=== PATIENT | female | born 2000 | race Caucasian/White ===

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

== ENCOUNTER 2019-12-10 10:19 | Outpatient (CLI) | payer MEDICAID ==
--- NOTE | 2019-12-10 15:36 | Ultrasound Report ---
Reason: TEST POSITIVE Procedure Date: 12/10/2019 Accession Number: [id number] / [id number] Procedure: US - OB First Trimester CPT Code: Addended Final Report FULL RESULT: EXAM: FIRST TRIMESTER OBSTETRIC ULTRASOUND (Less than 11 weeks) EXAM DATE: 12/10/2019 10:42 AM. CLINICAL HISTORY: TEST POSITIVE. LMP: 10/20/2019. COMPARISONS: None. TECHNIQUE: Transabdominal and transvaginal ultrasound examination with static image documentation. CLINICAL DATES: EGA 7 weeks 2 days with NOBLE 07/26/2020 based on LMP. ASSESSMENT: Gestational Sac: Single intrauterine. Mean gestational sac diameter: 1.8 mm = 6 weeks 5 days. Embryo: CRL (crown-rump length) 5.3 mm = 6 weeks 2 days. Cardiac activity: No cardiac activity is detected. Yolk sac: 4.9 mm. Amniotic fluid: Not accurately assessed at this gestational age. Early placenta: Not visible at this gestational age. Other: No perigestational fluid collection demonstrated. MATERNAL STRUCTURES: Uterus: Retroverted. Unremarkable. Cervix: Closed. Right Ovary/Adnexa: The ovary measures 3.3 x 2.5 x 2.1 cm, volume 9 cc. A 1.4 cm cyst is within physiologic limits. Left Ovary/Adnexa: The ovary measures 3.0 x 1.8 x 1.5 cm, volume 4.2 cc. Unremarkable. Free Fluid: None. Other: None. IMPRESSION: Intrauterine of uncertain viability. Intrauterine embryo with crown-rump length corresponding to a gestational age of 6 weeks 2 days. No cardiac activity seen at this time, which can be normal in early . Recommend follow-up ultrasound in 7-10 days to assess viabilityHayde MUIR The call report notification system was initiated by Dr. Lemuel Aguero at 03:31 PM on 12/10/2019. ADDENDUM: 12/10/19 15:48 The above call report findings were discussed with EDUAR Reed on behalf ofJose Davis by Dr. Lemuel Aguero at 03:48 PM on 12/10/2019.
== END 2019-12-10 10:20 | disposition home or self-care (01) ==
LOC: DI 10:19
PROVIDERS: ATTEND Obstetrics & Gynecology
DX: Z32.01 Encounter for pregnancy test, result positive (principal)
CPT/HCPCS: 76801

== ENCOUNTER 2019-12-11 08:00 | Outpatient (CLI) | payer MEDICAID | END 2019-12-11 08:01 | disposition home or self-care (01) | LOC: LAB.WCP 08:00 → MERGE 08:35 | PROVIDERS: ATTEND Obstetrics & Gynecology | DX: O03.9 Complete or unspecified spontaneous abortion without complication (principal); Z32.01 Encounter for pregnancy test, result positive | CPT/HCPCS: 36415; 84702; 86900; 86901 ==

== ENCOUNTER 2019-12-13 08:00 | Outpatient (CLI) | payer MEDICAID | END 2019-12-13 23:59 | disposition home or self-care (01) | LOC: LAB.WCP 08:00 | PROVIDERS: ATTEND Nurse Practitioner Obstetrics & Gynecology | DX: O03.9 Complete or unspecified spontaneous abortion without complication (principal); Z32.01 Encounter for pregnancy test, result positive | CPT/HCPCS: 36415; 84702 ==

== ENCOUNTER 2019-12-17 06:54 | Outpatient (CLI) | payer MEDICAID ==
--- NOTE | 2019-12-17 09:03 | Ultrasound Report ---
Reason: TEST POSITIVE Procedure Date: 12/17/2019 Accession Number: [id number] / [id number] Procedure: US - OB First Trimester CPT Code: Final Report FULL RESULT: EXAM: FIRST TRIMESTER OBSTETRIC ULTRASOUND (Less than 11 weeks) EXAM DATE: 12/17/2019 07:48 AM. CLINICAL HISTORY: TEST POSITIVE. LMP: 10/20/2019. COMPARISONS: OB FIRST TRIMESTER 12/10/2019 10:42 AM. TECHNIQUE: Transabdominal and transvaginal ultrasound examination with static image documentation. CLINICAL DATES: EGA 8 weeks 2 days with NOBLE 07/26/2020 based on LMP. ASSESSMENT: Gestational Sac: Single intrauterine. Mean gestational sac diameter: 22.2 mm = 7 weeks 1 day. Embryo: CRL (crown-rump length) 4.1 mm = 6 weeks 1 day. Cardiac activity: 0 beats per minute. Yolk sac: 1.8 mm. Amniotic fluid: Not accurately assessed at this gestational age. Early placenta: Not visible at this gestational age. Other: No perigestational fluid collection demonstrated. MATERNAL STRUCTURES: Uterus: Retroverted. Unremarkable. Cervix: Closed. Right Ovary/Adnexa: The ovary measures 3.9 x 2.6 x 1.6 cm, volume 8.5 cc. Unremarkable. Left Ovary/Adnexa: The ovary measures 2.6 x 1.6 x 1.7 cm, volume 3.7 cc. Unremarkable. Free Fluid: None. Other: None. IMPRESSION: 1. Single intrauterine gestation at EGA 6 weeks 1 day with NOBLE 9 1320 based on crown-rump length, which is discordant with clinical dates. 2. No interval growth in the 7 days since the prior ultrasound of 12/10/2019 and absence of cardiac activity consistent with failed .. RADIA
== END 2019-12-17 06:55 | disposition home or self-care (01) ==
LOC: DI 06:54
PROVIDERS: ATTEND Obstetrics & Gynecology
DX: Z32.01 Encounter for pregnancy test, result positive (principal)
CPT/HCPCS: 76801; 76817

== ENCOUNTER 2020-01-04 16:09 | Emergency (ER) | payer MEDICAID ==
[2020-01-04] MEDS ORDERED: PROPOFOL 200 MG/20 ML VIAL IVP ONE (16:10)
[2020-01-04] MEDS ORDERED: DEXAMETHASONE 4 MG/ML VIAL IVP ONE (16:10)
[2020-01-04] MEDS ORDERED: MIDAZOLAM 2 MG/2 ML VIAL IVP ONE (16:10)
[2020-01-04] MEDS ORDERED: ONDANSETRON 4 MG/2 ML VIAL IVP ONE (16:10)
[2020-01-04] MEDS ORDERED: LIDOCAINE-MPF 2% 5 ML VIAL IM ONE (16:10)
[2020-01-04] MEDS ORDERED: ACETAMINOPHEN 1,000 MG/100 ML 100 ML IV ONE (16:10)
[2020-01-04] MEDS ORDERED: KETOROLAC 30 MG/ML VIAL IVP ONE (16:10)
[2020-01-04] MEDS ORDERED: fentaNYL 100 MCG/2 ML VIAL IVP ONE (16:10)
[2020-01-04] MEDS ORDERED: SODIUM CHLORIDE 0.9% 1,000 ML IV ONE (16:33)
--- NOTE | 2020-01-04 16:35 | ED Physician Documentation ---
PD HPI ABD PAIN - Stated complaint Stated Complaint: Miscarriage/Bleeding - Chief complaint Chief Complaint: Abd Pain - History obtained from History obtained from: Patient (This is a 19-year-old woman who had a known miscarriage and was given misoprostol 5 days ago and 4 days ago respectively. She has had heavy bleeding today, Triple a normal menses. She thinks. She had a couple episodes of syncope. No injury. She was helped down to the ground.) Review of Systems Ten Systems: 10 systems reviewed and negative Constitutional: denies: Fever, Chills Cardiac: reports: Reviewed and negative Respiratory: reports: Reviewed and negative PD PAST MEDICAL HISTORY - Past Medical History Past Medical History: No - Allergies Allergies/Adverse Reactions: Allergies Allergy/AdvReac Type Severity Reaction Status Date / Time No Known Drug Allergies Allergy Verified 01/04/20 16:15 - Social History Does the pt have substance abuse?: No PD ED PE NORMAL - Vitals Vital signs reviewed: Yes (Normal vitals, hemodynamically stable) - General General: Alert and oriented X 3, No acute distress - HEENT HEENT: PERRL, EOMI - Neck Neck: Supple, no meningeal sign, No bony TTP - Cardiac Cardiac: RRR, No murmur - Respiratory Respiratory: No respiratory distress, Clear bilaterally - Abdomen Abdomen: Normal bowel sounds, Soft, Non tender - Back Back: No CVA TTP, No spinal TTP - Derm Derm: Normal color, Warm and dry - Extremities Extremities: No tenderness to palpate, No edema, No calf tenderness / cord - Neuro Neuro: Alert and oriented X 3, Normal speech Results - Vitals Vitals: Vital Signs - 24 hr 01/04/20 16:16 Temperature 36.9 C Heart Rate 89 Respiratory 18 Rate Blood Pressure 129/86 H O2 Saturation 100 Oxygen O2 Source Room air PD MEDICAL DECISION MAKING - ED course ED course: OB, Dr. Padilla was here on arrival. She examined her internally and thought she got POC from the os but she continued to bleed and she reviewed the ultrasound and there were products of conception remaining so was taking her to the OR for D&C. Departure - Departure Disposition: ED Transfer to [facility] Clinical Impression: Incomplete Condition: Stable
--- NOTE | 2020-01-04 17:21 | CONSULTATION NOTE ---
History of Present Illness - History of Present Illness HPI Comment/Other: Consulting: ER HPI: Took mifi on Mon then miso on (3d ago). 4h post miso started bleeding and cramping, passed some clots, thought she was done. Bleeding was like a period following that. Then today VB increased along with cramping. Was on the toilet and had free-flow of blood as well as clot. On the toilet tried to get up and blacked out 3x, was assisted down by her mother, didn't hit her head. VB is ongoing. PMH: headaches PSH: neg NKDA OB: Meds: PNV SH: no t/e/d ROS: feeling ok, no fevers, no URI sx. O: AVSS Alert, smiling, has color, NAD Cor RRR no murmurs Lungs CTA bilat Abd soft, nt/nd EFG normal Cervix with ?POC? at the opening. Removed with a ring forcep and sent to pathology US with retained POC Soaked 1 normal sized pad in 30min. Labs pending Meds/Allgy - Allergies Allergies/Adverse Reactions: Allergies Allergy/AdvReac Type Severity Reaction Status Date / Time No Known Drug Allergies Allergy Verified 01/04/20 16:15 Exam - Vital Signs Vital Signs: Vital Signs x48h Temp Pulse Resp BP Pulse Ox 01/04/20 16:16 98.4 F 89 18 129/86 H 100 Conclusion/Plan - Diagnosis Diagnosis: Incomplete miscarriage - Plan Plan: Incomplete SAB, had a MAB with CRL of 6w, took mifi and miso 3d ago, today has increased vag bleeding and POC seen on US. Pt prefers to go do D&C rather than to do another round of medication that may not be successful. Expect mgmt offered but not recommended. To OR now. Reviewed procedure and recovery. Risks discussed including bleeding, infection, trauma to local organs, anesthesia complications, and failure to remove all products of conception. All questions were answered and consent was signed. Anticipate discharge from PACU. Labs pending. Rh+.
[2020-01-04 17:38] LABS: BASOPHILS % (AUTO) 0.2 %; EOSINOPHILS # (AUTO) 0.1 10^3/uL (0.0-0.7); EOSINOPHILS % (AUTO) 0.6 %; HGB - HEMOGLOBIN 11.6 g/dL (12.0-16.0); LYMPHOCYTES # (AUTO) 1.4 10^3/uL (1.5-3.5); LYMPHOCYTES % (AUTO) 16.7 %; MEAN CORPUSCULAR HEMOGLOBIN 29.1 pg (27.0-31.0); MEAN CORPUSCULAR HGB CONC 32.5 g/dL (32.0-36.0); MEAN CORPUSCULAR VOLUME 89.7 fL (81.0-99.0); MEAN PLATELET VOLUME 9.9 fL (7.9-10.8); MONOCYTES # (AUTO) 0.5 10^3/uL (0.0-1.0); MONOCYTES % (AUTO) 5.7 %; NEUTROPHILS # (AUTO) 6.6 10^3/uL (1.5-6.6); NEUTROPHILS % (AUTO) 76.3 %; PLT - PLATELET COUNT 241 10^3/uL (130-450); RED BLOOD COUNT 3.98 10^6/uL (4.20-5.40); RED CELL DISTRIBUTION WIDTH 13.7 % (12.0-15.0); WHITE BLOOD COUNT 8.6 x10^3/uL (4.8-10.8)
[2020-01-04 17:41] LABS: ALBUMIN 3.9 g/dL (3.2-5.5); ALBUMIN/GLOBULIN RATIO 1.3 (1.0-2.2); BILIRUBIN,TOTAL 0.6 mg/dL (0.2-1.0); CALCIUM 8.7 mg/dL (8.5-10.3); CREATININE 0.7 mg/dL (0.4-1.0)
--- NOTE | 2020-01-04 17:56 | Ultrasound Report ---
Reason: Pelvic pain/bleeding post miscarriage Procedure Date: 01/04/2020 Accession Number: [id number] / [id number] Procedure: US - Pelvic w/Transvag+Doppler Comp CPT Code: Final Report FULL RESULT: EXAM: PELVIC ULTRASOUND WITH DOPPLERS CLINICAL HISTORY: Pelvic pain/bleeding post miscarriage. COMPARISON: None. TECHNIQUE: Realtime transabdominal imaging performed to identify the uterus and adnexa and as an overview of other pelvic structures, with static image documentation. Color flow imaging and Doppler spectral analysis was performed to evaluate blood flow to the ovaries given pelvic pain and clinical concern for ovarian torsion. FINDINGS: Uterus: 10.0 x 4.4 x 5.3 cm, volume 124.4 cc. Anteverted position. Normal overall size and echotexture. Masses: None. Endometrium: 14 mm. Mildly thickened with cystic structure within the endometrium measuring 15 x 6 mm. Cervix: Unremarkable. Right Ovary: 2.6 x 3.3 x 1.6 cm, volume 7.0 cc. Normal echotexture. Arterial and venous blood flow are present. PSV 15.8 cm/sec. RI 0.7. Adnexa are unremarkable. Left Ovary: 2.5 x 1.4 x 1.2 cm, volume 2.1 cc. Normal echotexture. Arterial and venous blood flow are present. PSV 13.3 cm/sec. RI 0.6. Adnexa are unremarkable. Free Fluid: None. Other: None. IMPRESSION: 1. The endometrium is mildly thickened with a cystic structure in the endometrium measuring 15 x 6 mm. 2. Arterial and venous blood flow are present to the ovaries bilaterally. RADIA
--- NOTE | 2020-01-04 18:14 | ANESTHESIA ---
Pre-Anesthesia VS, & Labs - Diagnosis Diagnosis Incomplete miscarriage - Procedure suction D and C Vital Signs: Temp Pulse Resp BP Pulse Ox 36.9 C 88 18 120/74 100 01/04/20 16:16 01/04/20 17:38 01/04/20 17:38 01/04/20 17:38 01/04/20 17:38 Height 5 ft 5 in Weight (kg) 76.204 kg Body Mass Index 27.9 - NPO Other (noon, soup) - Is Patient ?: No - Lab Results Current Lab Results: Laboratory Tests 01/04/20 17:20: Sodium 139, Potassium 3.8, Chloride 104, Carbon Dioxide 24, Anion Gap 11.0, BUN 8, Creatinine 0.7, Estimated GFR (MDRD) 107, Glucose 103 H, Calcium 8.7, Total Bilirubin 0.6, AST 26, ALT 26, Alkaline Phosphatase 42, Total Protein 7.0, Albumin 3.9, Globulin 3.1, Albumin/Globulin Ratio 1.3, Lipase 27 01/04/20 17:20: WBC 8.6, RBC 3.98 L, Hgb 11.6 L, Hct 35.7 L, MCV 89.7, MCH 29.1, MCHC 32.5, RDW 13.7, Plt Count 241, MPV 9.9, Neut # (Auto) 6.6, Lymph # (Auto) 1.4 L, [place] # (Auto) 0.5, Eos # (Auto) 0.1, Baso # (Auto) 0.0, Absolute Nucleated RBC 0.00, Nucleated RBC % 0.0 Fish Bones: 01/04/20 17:20 01/04/20 17:20 Home Medications and Allergies Allergies/Adverse Reactions: Allergies Allergy/AdvReac Type Severity Reaction Status Date / Time No Known Drug Allergies Allergy Verified 01/04/20 16:15 Anes History & Medical History - Anesthetic History Anesthesia Complications: reports: No previous complications - Medical History Cardiovascular: reports: None Pulmonary: reports: None Gastrointestinal: reports: None Urinary: reports: None Neuro: reports: Migraines, Fainting Musculoskeletal: reports: None Endocrine/Autoimmune: reports: None Blood Disorders: reports: None Skin: reports: None Smoking Status: Never smoker Psychosocial: reports: No issues indicated Exam General: Alert Dental: WNL Mouth Opening: Greater than 4 Fingerbreadths Mallampati classification: I Thyromental Distance: greater than 6 cm Respiratory: Lungs clear Cardiovascular: Regular rate Mental/Cognitive Status: Alert/Oriented X3 Plan Anesthesia Type: General Consent for Procedure(s) Verified and Reviewed: Yes Code Status: Attempt Resuscitation ASA classification: 1-Healthy patient Is this case an emergency?: Yes
[2020-01-04] MEDS ORDERED: LIDOCAINE MPF 2%-EPI 1:200000 20 ML VIAL ONE (18:22)
[2020-01-04] MEDS ORDERED: SILVER NITRATE APPLICATOR TOP ONE (18:22)
[2020-01-04] MEDS ORDERED: SODIUM CHLORIDE 0.9% 600 ML IV ONE (18:38)
[2020-01-04] MEDS ORDERED: LACTATED RINGERS 1,000 ML IV ONE (19:14)
[2020-01-04] MEDS ORDERED: ONDANSETRON 4 MG/2 ML VIAL IVP PRN (19:16)
[2020-01-04] MEDS ORDERED: oxyCODONE 5 MG TABLET PO PRN (19:16)
--- NOTE | 2020-01-04 19:20 | OPERATIVE REPORT ---
Operative Report - General Procedure Date: 01/04/20 Pre-Op Diagnosis: incomplete SAB Procedure Performed: D&C Post Op Diagnosis: same - Procedure Note Anesthesia Technique: General LMA Pathology: POC to path IV Fluids (mL): 300 Estimated Blood Loss (mL): 20 Findings: n/a Complications: none
[2020-01-04 21:20] VITALS: BP 126/56
--- NOTE | 2020-01-05 02:05 | OPERATIVE REPORT ---
DATE OF SERVICE: 01/04/2020 Physician: Kathy Padilla MD PREOPERATIVE DIAGNOSIS: Incomplete miscarriage. POSTOPERATIVE DIAGNOSIS: Incomplete miscarriage. PROCEDURE PERFORMED: Dilation and curettage. SURGEON: Kathy Padilla MD. MANAGER SPECIALTY: None. ESTIMATED BLOOD LOSS: 20 mL INTRAVENOUS FLUIDS: 300 mL of crystalloid. ANESTHESIA: General. COUNTS: Correct x2. COMPLICATIONS: None apparent. DISPOSITION: Stable to the recovery room. PROPHYLAXIS: SCDs to bilateral lower extremities. SPECIMENS: Products of conception to pathology. FINDINGS: Normal cry in the uterus at the end of the procedure. COUNSELING: The patient came to the ER with an incomplete miscarriage and blacking out 3 times at [facility]. She had already been treated with medical management and this complication was 3 days following this. She is offered repeat medical or surgical management and she preferred to go to the operating room. DESCRIPTION OF PROCEDURE: The patient was brought to the operating room, where she was induced with general anesthesia. She was placed in low lithotomy in [facility]. A bimanual examination re vealed an axial uterus. The patient was prepped and draped in the usual sterile fashion. A speculum was placed and an Allis clamp was applied to the anterior lip of the cervix. Then, 10 mL of lidocai ne with epinephrine was injected in divided doses in a paracervical block. The cervix was already di lated to 8 mm. A size 8 suction curette was introduced into the uterine cavity after ensuring that t he suction pressure was less than 40. Some products of conception were removed. A pass with a sharp curette was then performed to ensure that the patient had good cry throughout. She did. The remain aurelia of the blood was suctioned. The patient still had rather brisk bleeding from her os, and so bima nual massage was performed for about 2 minutes. Following this, the cervix was observed and no furth er bleeding was identified. All instruments were removed from her vagina. She should go home from [facility]. TD: 01/04/2020 19:27
== END 2020-01-04 21:00 ==
LOC: ED 16:09 → MS2 20:35 → ED 21:00
DX: O03.4 Incomplete spontaneous abortion without complication (principal); R55 Syncope and collapse
CPT/HCPCS: 36415; 76830; 76856; 80053; 83690; 85025; 86850; 86900; 86901; 93975; 99284; 99285; J0131; J7120

== ENCOUNTER 2020-08-14 17:21 | Outpatient (CLI) | payer MEDICAID ==
--- NOTE | 2020-08-15 13:33 | Ultrasound Report ---
PROCEDURE: Pelvic w/Transvaginal INDICATIONS: ACUTE PELVIC PAIN TECHNIQUE: Real-time scanning was performed of the pelvic organs, with image documentation. Additional endovagi nal scanning was necessary due to incomplete visualization of the adnexal and endometrial structures by transabdominal scanning. COMPARISON: Prior pelvis ultrasound 01/04/2020. FINDINGS: Transabdominal scanning: Limited scanning through the kidneys shows no hydronephrosis. No pathologi c free abdominal or pelvic fluid. Endovaginal scanning: Uterus: Uterus is normal in size at 3.7 x 5.0 x 6.4 cm., Retroverted The endometrium measures 4.0 m m in combined thickness. Ovaries: The right ovary measures 3.1 x 2.6 x 2.8 cm and the left measures 2.6 x 2.1 x 2.2 cm. There is no suspicion for ovarian torsion bilaterally or pelvic cystic or solid mass. IMPRESSION: Source of current pain is not identified. Normal-appearing uterus and ovaries bilaterally. No abnorma l free fluid within the peritoneal space was identified. Reviewed by: Denver Campos MD on 08/15/2020 1:31 PM PDT Approved by: Denver Campos MD on 08/15/2020 1:31 PM PDT Station ID: [id number]
== END 2020-08-14 17:22 | disposition home or self-care (01) ==
LOC: DI 17:21
PROVIDERS: ATTEND Nurse Practitioner Obstetrics & Gynecology
DX: R10.2 Pelvic and perineal pain (principal)
CPT/HCPCS: 76830; 76856

== ENCOUNTER 2021-01-23 08:00 | Outpatient (CLI) | payer MEDICAID ==
[2021-01-26 09:36] LABS: NIL 0.04 IU/mL
== END 2021-01-23 23:59 | disposition home or self-care (01) ==
LOC: LAB.WCP 08:00
PROVIDERS: ATTEND Nurse Practitioner Family
DX: Z11.1 Encounter for screening for respiratory tuberculosis (principal)
CPT/HCPCS: 36415; 81599; 86480; 86762; 86787

== ENCOUNTER 2021-04-24 10:21 | Emergency (ER) | payer MEDICAID ==
--- OUTSIDE RECORDS SUMMARY | 2021-04-24 10:57 | EXTERNAL MEDICAL SUMMARY RPT | Continuity of Care Document ---
:2000 Demographics Phone Unavailable Preferred Language Unknown Marital Status Unknown Protestant Affiliation Unknown Race Unknown Ethnic Group Unknown Author Organization [facility] Address [address] [place] [address] Phone Allergies Encounters Medications Problems Results
--- NOTE | 2021-04-24 12:14 | ED Physician Documentation ---
History of Present Illness - Stated complaint Stated Complaint: BLURRY VISION - Chief complaint Chief Complaint: Heent - History obtained from History obtained from: Patient - Additonal information Additional information: 20-year-old woman with history of migraines, depression, but otherwise generally healthy. She was in her usual state of health at work and felt her vision in both eyes go blurry. It was associated with a weak and dizzy feeling and labile heart rates. Somebody at work took her heart rate and it was up to 120. She now feels almost completely better. There is no associated chest pain or trouble breathing. She had a migraine yesterday but no headache today. She wears contacts, but no changes there. No changes in her antidepressant dosing. Review of Systems Constitutional: reports: Reviewed and negative Eyes: denies: Photophobia, Discharge, Irritation Ears: denies: Loss of hearing, Ear pain Nose: denies: Rhinorrhea / runny nose, Congestion PD PAST MEDICAL HISTORY - Past Medical History Cardiovascular: None Respiratory: None Neuro: Migraines, Fainting Endocrine/Autoimmune: None GI: None : None Musculoskeletal: None Derm: None - Past Surgical History Past Surgical History: Yes - Present Medications Home Medications: Ambulatory Orders Medication Instructions Recorded Confirmed Fluvoxamine Maleate [Fluvoxamine 150 mg PO DAILY 04/24/21 04/24/21 Maleate ER] - Allergies Allergies/Adverse Reactions: Allergies Allergy/AdvReac Type Severity Reaction Status Date / Time No Known Drug Allergies Allergy Verified 01/04/20 16:15 - Social History Does the pt smoke?: No Smoking Status: Never smoker Does the pt drink ETOH?: No Does the pt have substance abuse?: No - Immunizations Immunizations are current?: Yes PD ED PE NORMAL - Vitals Vital signs reviewed: Yes - General General: Alert and oriented X 3, No acute distress - HEENT HEENT: PERRL, EOMI - Neck Neck: Supple, no meningeal sign, No bony TTP - Cardiac Cardiac: RRR, No murmur - Respiratory Respiratory: No respiratory distress, Clear bilaterally - Abdomen Abdomen: Non tender - Extremities Extremities: No edema, No calf tenderness / cord - Neuro Neuro: Alert and oriented X 3, Normal speech - Psych Psych: Normal mood, Normal affect Results - Vitals Vitals: Vital Signs - 24 hr 04/24/21 10:44 Temperature 36.3 C L Heart Rate 69 Respiratory 16 Rate Blood Pressure 133/89 H O2 Saturation 99 Oxygen O2 Source Room air - EKG (time done) 1230 Rate: Rate (enter#) (69) Rhythm: NSR [place]: Normal Intervals: Normal [place] QRS: Normal Ischemia: Normal ST segments PD MEDICAL DECISION MAKING - ED course ED course: 20-year-old woman with resolved episode of blurry vision with tachycardia. Of note her Apple watch did not alarm so doubt tachydysrhythmia. Will check EKG, otherwise watchful waiting is advised. Departure - Departure Disposition: 01 Home, Self Care Clinical Impression: Blurry vision, bilateral, Tachycardia Condition: Good Record reviewed to determine appropriate education?: Yes Instructions: ED Blurred Vision Comments: Your examination is now normal as is your EKG. Return for new or worsening symptoms. Follow-up with your primary care physician.
[2021-04-24 12:42] VITALS: BP 132/80
== END 2021-04-24 12:42 | disposition home or self-care (01) ==
LOC: ED 10:21
DX: H53.8 Other visual disturbances (principal); R00.0 Tachycardia, unspecified; R42 Dizziness and giddiness; R53.1 Weakness
CPT/HCPCS: 93005; 99283

== ENCOUNTER 2021-11-17 13:45 | Outpatient (CLI) | payer MEDICAID, OTHER ==
[2021-11-17 17:23] LABS: BILIRUBIN,URINE NEGATIVE (NEGATIVE); GLUCOSE, URINE (UA) NEGATIVE (NEGATIVE); KETONES,URINE (UA) NEGATIVE (NEGATIVE); LEUKOCYTE ESTERASE, URINE TRACE (NEGATIVE); NITRITE,URINE NEGATIVE (NEGATIVE); OCCULT BLOOD,URINE TRACE-INTA (NEGATIVE); PH,URINE 6.5 PH (5.0-7.5); PROTEIN,URINE NEGATIVE (NEGATIVE); UROBILINOGEN,URINE 0.2 (NORMAL) E.U./dL (NORMAL)
[2021-11-17 17:32] LABS: CLARITY,URINE HAZY (CLEAR)
[2021-11-17 17:54] LABS: BACTERIA,URINE Moderate /HPF (None Seen); RBC,URINE 0-5 /HPF (0-5); SQUAMOUS EPITHELIAL CELL,UR MANY Squamous (<= Few)
== END 2021-11-17 23:59 | disposition home or self-care (01) ==
LOC: LAB.R 13:45
PROVIDERS: ATTEND Obstetrics & Gynecology
DX: Z32.01 Encounter for pregnancy test, result positive (principal)
CPT/HCPCS: 81001; 87086

== ENCOUNTER 2021-11-24 14:31 | Outpatient (CLI) | payer OTHER ==
[2021-11-24 15:01] LABS: BASOPHILS % (AUTO) 0.3 %; EOSINOPHILS # (AUTO) 0.1 10^3/uL (0.0-0.7); EOSINOPHILS % (AUTO) 1.1 %; HCT - HEMATOCRIT 39.3 % (37.0-47.0); HGB - HEMOGLOBIN 13.3 g/dL (12.0-16.0); LYMPHOCYTES # (AUTO) 2.1 10^3/uL (1.5-3.5); LYMPHOCYTES % (AUTO) 29.5 %; MEAN CORPUSCULAR HEMOGLOBIN 29.3 pg (27.0-31.0); MEAN CORPUSCULAR HGB CONC 33.8 g/dL (32.0-36.0); MEAN CORPUSCULAR VOLUME 86.6 fL (81.0-99.0); MEAN PLATELET VOLUME 9.7 fL (7.9-10.8); MONOCYTES # (AUTO) 0.5 10^3/uL (0.0-1.0); MONOCYTES % (AUTO) 7.3 %; NEUTROPHILS # (AUTO) 4.3 10^3/uL (1.5-6.6); NEUTROPHILS % (AUTO) 61.7 %; PLT - PLATELET COUNT 220 10^3/uL (130-450); RED BLOOD COUNT 4.54 10^6/uL (4.20-5.40); RED CELL DISTRIBUTION WIDTH 13.4 % (12.0-15.0)
[2021-11-24 15:47] LABS: BILIRUBIN,URINE NEGATIVE (NEGATIVE); GLUCOSE, URINE (UA) NEGATIVE (NEGATIVE); KETONES,URINE (UA) NEGATIVE (NEGATIVE); LEUKOCYTE ESTERASE, URINE MODERATE (NEGATIVE); NITRITE,URINE NEGATIVE (NEGATIVE); OCCULT BLOOD,URINE TRACE-INTA (NEGATIVE); PH,URINE 6.5 PH (5.0-7.5); PROTEIN,URINE NEGATIVE (NEGATIVE); UROBILINOGEN,URINE 0.2 (NORMAL) E.U./dL (NORMAL)
[2021-11-24 15:50] LABS: CLARITY,URINE CLOUDY (CLEAR)
[2021-11-24 15:58] LABS: BACTERIA,URINE Moderate /HPF (None Seen); SQUAMOUS EPITHELIAL CELL,UR MOD Squamous (<= Few)
--- NOTE | 2021-11-24 16:06 | Ultrasound Report ---
PROCEDURE: OB First Trimester w/TV INDICATIONS: POSITIVE TEST OUTSIDE/PRIOR DATING DATA: Last menstrual period (LMP): October 02, 2021. LMP-based estimated date of delivery (NOBLE): July 09, 2022. First dating scan (date ): November 24, 2021. Estimated date of delivery (NOBLE) from first dating scan: July 14, 2022. The below data below was generated using the ultrasound NOBLE of July 14, 2022 TECHNIQUE: Real-time scanning was performed of the fetus and maternal pelvic organs, with image documentation. Endovaginal scanning was also performed to better visualize the fetus and maternal ovaries. COMPARISON: None. FINDINGS: A 1.6 x 0.7 x 2.4 cm hypoechoic area is seen adjacent to the gestational sac, compatible w ith subchorionic hemorrhage. Embryo: The crown-rump length measures 8.9 mm, compatible with a 6 week, 6 day gestation. Heart rate: 152 bpm Cervix: Appears closed. Measurement variability in dating: +/- 4 weeks by LMP, +/- 7 days by mean sac diameter (use before 6 weeks gestation if crown-rump length not able to be measured), +/- 5 days by crown-rump length (6-12 weeks gestation). Maternal organs: Thick-walled hypoechoic lesion in the right ovary, most consistent with a corpus lut eum. Small amount of fluid in the cul-de-sac IMPRESSION: 1. Early live single intrauterine gestation as detailed above. Reviewed by: Eran Newby MD on 11/24/2021 4:04 PM PST Approved by: Eran Newby MD on 11/24/2021 4:04 PM PST Station ID: [id number]
[2021-11-25 11:47] LABS: HEPATITIS B SURFACE ANTIGEN NON-REACTIVE (NON-REACTIVE); HEPATITIS C ANTIBODY NON-REACTIVE (NON-REACTIVE)
[2021-11-25 15:16] LABS: HIV AG/AB 4TH GEN NON-REACTIVE (NON-REACTIVE)
== END 2021-11-24 14:32 | disposition home or self-care (01) ==
LOC: DI 14:31
PROVIDERS: ATTEND Obstetrics & Gynecology
DX: Z32.01 Encounter for pregnancy test, result positive (principal); Z36.89 Encounter for other specified antenatal screening
CPT/HCPCS: 36415; 81001; 85025; 86592; 86762; 86787; 86803; 86850; 86900; 86901; 87086; 87340; 87389

== ENCOUNTER 2021-12-18 08:00 | Outpatient (CLI) | payer OTHER ==
[2021-12-18 12:10] LABS: BILIRUBIN,URINE NEGATIVE (NEGATIVE); GLUCOSE, URINE (UA) NEGATIVE (NEGATIVE); KETONES,URINE (UA) NEGATIVE (NEGATIVE); LEUKOCYTE ESTERASE, URINE NEGATIVE (NEGATIVE); NITRITE,URINE NEGATIVE (NEGATIVE); OCCULT BLOOD,URINE NEGATIVE (NEGATIVE); PH,URINE 6.5 PH (5.0-7.5); PROTEIN,URINE NEGATIVE (NEGATIVE); UROBILINOGEN,URINE 0.2 (NORMAL) E.U./dL (NORMAL)
[2021-12-18 12:23] LABS: BACTERIA,URINE None Seen /HPF (None Seen); CLARITY,URINE CLEAR (CLEAR); RBC,URINE 0-5 /HPF (0-5); SQUAMOUS EPITHELIAL CELL,UR MOD Squamous (<= Few)
[2021-12-18 12:24] LABS: CRYSTALS,URINE 0-2 Calcium Oxalate /LPF
[2021-12-18 20:53] LABS: CHLAMYDIA TRACHOMATIS DNA NEGATIVE (NEGATIVE); NEISSERIA GONORRHOEAE DNA NEGATIVE (NEGATIVE); TRICHOMONAS VAGINALIS DNA NEGATIVE (NEGATIVE)
== END 2021-12-18 23:59 | disposition home or self-care (01) ==
LOC: LAB.N 08:00
PROVIDERS: ATTEND Obstetrics & Gynecology
DX: Z34.90 Encounter for supervision of normal pregnancy, unspecified, unspecified trimester (principal); Z36.89 Encounter for other specified antenatal screening
CPT/HCPCS: 81001; 87086; 87491; 87591; 87661

== ENCOUNTER 2022-03-01 14:23 | Outpatient (CLI) | payer OTHER ==
--- NOTE | 2022-03-01 16:45 | Ultrasound Report ---
PROCEDURE: OB Detailed Eval INDICATIONS: SCREENING FOLLOW-UP OUTSIDE/PRIOR DATING DATA: Last menstrual period (LMP): 10/02/2021. LMP-based estimated date of delivery (NOBEL): 07/09/2022. First dating scan (date and location): 11/24/2021. Estimated date of delivery (NOBLE) from first dating scan: 07/14/2022. The below data below was generated using the ultrasound NOBLE of 07/14/2022 TECHNIQUE: Real-time scanning was performed of the fetus, with image documentation and biometric measurements. Endovaginal scanning: Performed COMPARISON: 11/24/2021. FINDINGS: General: A single living intrauterine gestation is present. Presentation: Variable Placenta: Placental position is posterior, without previa. Amniotic fluid index: 13.4 cm, normal 5-24 cm. Largest amniotic fluid pocket 3.6 cm. heart rate: 144 beats per minute. Maternal cervical canal: Closed and 3.3 cm long; normal length is 2.5 cm or more. biometrics: Biparietal diameter: 21 weeks 5 days Head circumference: 21 weeks 3 days Abdominal circumference: 21 weeks 4 days Femur length: 21 weeks 2 days Estimated gestational age from initial scan: 20 weeks 5 days. Composite gestational age from present scan: 20 weeks 1 day Estimated weight and percentile: 426 g; 84th percentile Measurement variability in biometric dating: +/- 10 days from 12-20 weeks gestation, +/- 2 weeks from 20-30 weeks gestation, +/- 3 weeks at 30 weeks gestation or later. Anatomic survey: Neuro: Ventricles are normal at less than 10 mm. Cisterna magna is normal at 3-11 mm. Cerebellum i s normal in size and morphology. Nuchal skin fold: Normal at less than 6 mm between 14 and 20 weeks gestational age. Face: Nose and lips, facial profile are normal. Spine: No evidence for spina bifida. Heart: 4-chambered heart is present, with normal ventricular outflow tracts. Echogenic focus noted w ithin the heart. Diaphragm: Diaphragm is intact. Stomach: Left-sided stomach is present. Kidneys: No hydronephrosis. Normal is less than 5 mm in 2nd trimester, less than 7 mm in 3rd trimester. Cord: 3 vessel cord has orthotopic insertion. Bladder: Normal in size. Extremities: All 4 extremities are visualized. IMPRESSION: 1. Single living intrauterine with appropriate interval growth. Estimated weight 226 g corresponding to the 84th percentile for gestational age. 2. Normal amniotic fluid index. 3. Small intracardiac echogenic focus. Recommend correlation with maternal risk factors and quad scre en. 4. Otherwise, normal anatomic survey. Reviewed by: Rosamaria Zhang MD, PhD on 03/01/2022 4:44 PM PDT Approved by: Rosamaria Zhang MD, PhD on 03/01/2022 4:44 PM PDT Station ID: [id number]
== END 2022-03-01 14:24 | disposition home or self-care (01) ==
LOC: DI 14:23
PROVIDERS: ATTEND Midwife
DX: Z36.2 Encounter for other antenatal screening follow-up (principal)

== ENCOUNTER 2022-08-26 08:47 | Emergency (ER) | payer MEDICAID, OTHER ==
[2022-08-26 09:10] VITALS: BP 140/77
[2022-08-26] MEDS ORDERED: LIDOCAINE-EPINEPH-TETRACAINE 3 ML SYRINGE TOP STA (11:22)
--- NOTE | 2022-08-26 12:21 | ED Physician Documentation ---
History of Present Illness - Stated complaint Stated Complaint: BREAST PX - History obtained from History obtained from: Patient - Additonal information Additional information: Patient is a 22-year-old female presenting for evaluation of stuck right nipple piercing. Patient reports that yesterday she noticed that the piercing was going into the skin on 1 side and that the hole was closing up. She was able to remove the ball on 1 side of her piercing but has not been able to pull the piercing fully out as the other ball is stuck inside of the breast. She denies any abnormal drainage or fever. She is not breast-feeding. She has had the piercings in place for 2 years. Review of Systems Constitutional: denies: Fever Nose: denies: Congestion Cardiac: denies: Chest pain / pressure Respiratory: denies: Dyspnea GI: denies: Abdominal Pain Musculoskeletal: denies: Back pain Neurologic: denies: Headache PD PAST MEDICAL HISTORY - Past Medical History Cardiovascular: None Respiratory: None Neuro: Migraines, Fainting Endocrine/Autoimmune: None GI: None : None Musculoskeletal: None Derm: None - Past Surgical History Past Surgical History: Yes - Present Medications Home Medications: Ambulatory Orders Medication Instructions Recorded Confirmed Fluvoxamine Maleate [Fluvoxamine 150 mg PO DAILY 04/24/21 04/24/21 Maleate ER] - Allergies Allergies/Adverse Reactions: Allergies Allergy/AdvReac Type Severity Reaction Status Date / Time No Known Drug Allergies Allergy Verified 08/26/22 09:10 - Social History Does the pt smoke?: No Smoking Status: Never smoker Does the pt drink ETOH?: No Does the pt have substance abuse?: No - Immunizations Immunizations are current?: Yes PD ED PE NORMAL - General General: Alert and oriented X 3, No acute distress, Well developed/nourished - HEENT HEENT: Atraumatic, Moist mucous membranes - Neck Neck: Supple, no meningeal sign - Cardiac Cardiac: RRR, Strong equal pulses, Other (Piercing to right breast, no surrounding erythema or abnormal drainage, Hole to lateral aspect of nipple is closed and unable to push piercing through it,) - Respiratory Respiratory: No respiratory distress - Derm Derm: Warm and dry Results - Vitals Vitals: Vital Signs - 24 hr 08/26/22 09:06 Temperature 36.3 C L Heart Rate 81 Respiratory 16 Rate Blood Pressure 140/77 H O2 Saturation 100 Oxygen O2 Source Room air PD MEDICAL DECISION MAKING - ED course ED course: Patient with nipple piercing to right breast. Unable to remove the piercing As 1 hole on the lateral aspect of her nipple has closed and the circular ball is not able to come through the other opening. Discussed with Dr. Chacon who is on- call for general surgery. She will see the patient in her office this afternoon to try and remove the piercing. There are no signs of infection. Departure - Departure Disposition: 01 Home, Self Care Clinical Impression: Foreign body (FB) in soft tissue Condition: Stable Follow-Up: Roberto Chacon MD [Provider Admit Priv/Credential] - Comments: We were unable to remove your piercing. Please follow-up with the surgeon today. YOU HAVE AN APPOINTMENT WITH Dr. CHACON (GENERAL SURGEON). The appointment is at 2:45 PM. You need to be at her office by 2:30 PM to fill out paperwork. Address: [address] [place] [id number] Hours: Open ? Closes 5PM Discharge Date/Time: 08/26/22 12:31
== END 2022-08-26 12:31 | disposition home or self-care (01) ==
LOC: ED 08:47
DX: S21.041A Puncture wound with foreign body of right breast, initial encounter (principal); X58.XXXA Exposure to other specified factors, initial encounter
CPT/HCPCS: 99281; 99282